=== PATIENT | female | born 1980 | race Caucasian/White ===

== ENCOUNTER 2017-08-04 03:18 | Inpatient (IN) ==
[2017-08-04] MEDS ORDERED: MAG-AL + SIM ORAL LIQUID 30ml PO PRN ×2 (07:25→14:44)
[2017-08-04] MEDS ORDERED: METHYLERGONOVINE 0.2 MG/ML INJECTION IM PRN (07:25)
[2017-08-04] MEDS ORDERED: CARBOPROST 250 MCG/ML INJECTION IM PRN (07:25)
[2017-08-04] MEDS ORDERED: ACETAMINOPHEN 500 MG TABLET PO PRN ×2 (07:25→14:44)
[2017-08-04] MEDS ORDERED: LIDOCAINE 1% (10mg/ml) 2mL INJ PF SDV ID PRN (07:25)
[2017-08-04] MEDS ORDERED: LR 1,000 ML IV PRN (07:25)
[2017-08-04] MEDS ORDERED: CALCIUM CARBONATE Chewable 500mg TABLET PO PRN ×2 (07:25→14:44)
[2017-08-04 07:43] VITALS: BMI 30.5
[2017-08-04] MEDS ORDERED: OXYTOCIN DRIP 30 UNIT/500 ML ML IV PRN (08:29)
[2017-08-04] MEDS ORDERED: D5LR 1,000 ML IV PRN (08:29)
--- NOTE | 2017-08-04 08:35 | Anesthesia Preoperative Report ---
Anesthesia Epidural/Spinal Rec - Date and Time Date: 08/04/17 Procedure: Labor Epidural Plan: Epidural - Vital Signs Vital Signs: Temperature 97.7 F 08/04/17 07:40 Pulse Rate 91 08/04/17 07:40 Respiratory Rate 16 08/04/17 07:40 Blood Pressure 137/97 H 08/04/17 07:40 Pulse Oximetry 98 08/04/17 07:40 NPO since: 0500 /Para: P:2 Heart Rate: 135 - Medictaions & Allergies Inpatient Medications: Current Medications Acetaminophen (Tylenol) 500 - 1,000 mg PO Q4H PRN PRN Reason: Pain Al Hydroxide/Mg Hydroxide (Maalox Plus) 30 ml PO Q3H PRN PRN Reason: Indigestion Calcium Carbonate (Tums) 500 - 1,000 mg PO Q2H PRN PRN Reason: Indigestion Carboprost Tromethamine (Hemabate) 250 mcg IM O PRN PRN Reason: .Downtime Lactated Ringer's (Lactated Ringers) 1,000 mls @ 999 mls/hr IV .Q1H1M PRN Last Admin: 08/04/17 07:05 Dose: 999 mls/hr Dextrose/Lactated Ringer's (Dextrose 5%-Lactated Ringers) 1,000 mls @ 125 mls/ hr IV .Q8H PRN PRN Reason: Labor Oxytocin (Pitocin Drip) 30 unit in 500 mls @ 2 mls/hr IV .Q24H PRN; Protocol PRN Reason: Induction/Augmentation Lidocaine HCl (Xylocaine-Mpf 1% Vial) 0.2 mg ID O PRN PRN Reason: IV Start Methylergonovine Maleate (Methergine) 0.2 mg IM O PRN Misoprostol (Cytotec) 800 mcg TX ONCE PRN Allergies/Adverse Reactions: Allergies Allergy/AdvReac Type Severity Reaction Status Date / Time No Known Drug Allergies Allergy Unknown Verified 08/04/17 08:31 - Home Medications Home Medications: Home Medications Medication Instructions Recorded Confirmed Type Citalopram Hydrobromide 20 mg PO HS #0 01/22/08 History [Citalopram HBr] Vits W-Ca,Fe,Fa(<1MG) 1 tab PO HS #0 01/22/08 08/04/17 History ( Vitamins) Fluticasone Nasal [place] [Flonase] 2 spray EA NOSTRIL DAILY 30 Days 06/02/16 Rx #1 bottle Promethazine HCl/Codeine 5 ml PO QHSPRN PRN 10 Days #50 ml 06/02/16 Rx [Promethazine-Codeine Syrup] No122/Iron/Folic Acid 1 each PO DAILY 08/04/17 08/04/17 History [ Multi Tablet] - Medical History Cardiovascular: Reports: Hypertension (with ) Gastrointestional: Reports: Gastroesophageal Reflux Disease (with ), Morbid Obesity (obesity with BMI 30.6) Neuro/Musculoskeletal: Reports: Depression (taking anti-depressnt) Other History: Reports: Now - Surgical History Reproductive Surgery/Treatment: DENIES: Section Anesthesia Reactions: None Hx Family Anesthesia Reaction: No History of Motion Sickness: No - Social History Smoking Status: Never smoker Second Hand Exposure: No Substance Use Type: does not use Alcohol Intake Frequency: does not drink Hx Chewing Tobacco Use: No - Pertinent Findings Lab Data: CBC and BMP 08/04/17 07:34 - Physical Exam Respiratory Exam: lungs clear, bilateral breath sounds equal Cardiovascular Exam: regular rate and rhythm - Airway Assessment Mallampati Score: II TMD: 3 Fingerbreadths Neck Extension: good Overall Assessment: no airway concerns - ASA ASA Score: 2 - Discussion Discussion: Discussed risks/options/alternatives of anesthesia and questions answered. Patient consents. Nursing pain assessment noted. Anesthesia Discussion: family member Attestation Statement: Prior to the delivery of any anesthetic medication, I examined the patient, developed the plan, obtained the patient's consent and discussed the risk and benefits of the procedure with the patient/guardian.
[2017-08-04] MEDS ORDERED: HYDROCODONE/APAP 5mg/325mg TABLET PO PRN (14:44)
[2017-08-04] MEDS ORDERED: HYDROCORTISONE 2.5% CREAM 30gm RECTALLY PRN (14:44)
[2017-08-04] MEDS ORDERED: DiphenhydrAMINE 25 MG CAPSULE PO PRN (14:44)
--- NOTE | 2017-08-04 15:28 | Labor and Delivery Note ---
DATE OF DELIVERY 08/04/2017 Ms. Morelos was brought in for induction of labor because of her elevated blood pressures. I attempted to perform rupture of membranes, however could not reach her cervix. We began Pitocin induction. After a couple of hours of this , she spontaneously ruptured clear fluid. She then rapidly progressed to complete and began to push in second stage of labor at the +1 station. She pushed for two contractions, delivering the head in the OA presentation. Baby was bulb suctioned on the perineum. There was a loose nuchal cord x2 that was reduced and then baby delivered with one further push. Baby was further bulb suctioned and placed on mother's abdomen for care. After almost three minutes, the cord was doubly clamped. It was cut by the baby's father, Nima. This is a liveborn female with Apgars of 8/9/9. Weight has not yet been obtained. The placenta was slower in coming. It took almost 45 minutes, but did deliver spontaneously, intact. It had a normal configuration and a normal- appearing three-vessel cord. There was a first degree midline laceration extending on the left labium. This was infiltrated with dilute lidocaine and repaired with two sutures of 2-0 Vicryl. Total blood loss was approximately 300 mL. At the time of this dictation, mother and baby are doing well. [facility]
[2017-08-04] MEDS: IBUPROFEN 800 MG TABLET PO SCH (16:25)
[2017-08-05] MEDS: IBUPROFEN 800 MG TABLET PO SCH ×3 (00:02→14:25)
--- NOTE | 2017-08-05 08:12 | OB/GYN Progress Note ---
OB-PP Progress Note - General PPD1 - Subjective Date: 08/05/17 Lochia: Moderate Pain: controlled (Using Ibuprofen for pain. Doing well. ) Voiding: voiding Nausea or Vomiting Present: No - Objective Vital Signs: Last Vital Signs Temp 97.5 F 08/05/17 06:00 Pulse 71 08/05/17 06:00 Resp 18 08/05/17 06:00 BP 158/96 H 08/05/17 06:24 Pulse Ox 99 08/05/17 06:00 Urine Output: good General: alert and oriented Abdomen: fundus firm Side: bilateral Laboratory: Laboratory Results - last 24 hr 08/05/17 08/05/17 07:48 07:48 WBC 11.4 H D RBC 3.99 L Hgb 11.4 L Hct 34.7 L MCV 87.0 MCH 28.6 MCHC 32.9 RDW Std Deviation 42.3 Plt Count 173 MPV 12.4 Turbidity < 20 Sodium 140 Potassium 4.1 Chloride 107 Carbon Dioxide 22 Anion Gap 11 BUN 10.0 Creatinine 0.7 GFR Calculation 94 BUN/Creatinine Ratio 14 Glucose 109 Calculated Osmolality 269 Calcium 9.3 Total Bilirubin 0.30 Icterus Index < 2 AST 32 ALT 18 Alkaline Phosphatase 156 H Total Protein 6.4 Albumin 3.4 L Globulin 3.0 Albumin/Globulin Ratio 1.1 Specimen Hemolysis < 15 - Assessment Assessment: - Plan Plan: routine care (Would like to be dismissed. )
[2017-08-05] MEDS ORDERED: DOCUSATE CALCIUM 240 MG CAPSULE PO SCH (09:00)
[2017-08-05] MEDS ORDERED: CITALOPRAM 20 MG TABLET PO SCH (09:00)
[2017-08-05] MEDS ORDERED: PRENATAL VITAMIN TABLET PO SCH (09:00)
[2017-08-05 14:24] VITALS: RESP 16; O2SAT 98
[2017-08-05 18:58] VITALS: BP 152/93; PULSE 81; TEMP 98
== END 2017-08-05 17:45 | disposition home or self-care (01) | DRG 775 ==
LOC: MC 07:18
PROVIDERS: ADMIT Obstetrics & Gynecology; ATTEND Obstetrics & Gynecology